=== PATIENT | female | born 1950 | race American Indian/Alaskan Native ===

== ENCOUNTER 2017-12-21 19:43 | Observation (INO) | payer BC ==
--- NOTE | 2017-12-21 20:11 | ED PDOC ---
Arrival/HPI - General Time Seen by Provider: 12/21/17 19:46 Historian: Patient - History of Present Illness Narrative History of Present Illness (Text): 12/21/17 20:07 A 67 year old female, whose past medical history includes hypertension, presents to the emergency department complaining of left-side chest discomfort for past couple days. Patient is unable to describe discomfort. Patient denies any fever, chills, cough, shortness of breath, or any other complaints. Also, patient mentions she is a past smoker. PMD: Dr. Ryan Montejo Time/Duration: Other (2-3 days) Symptom Onset: Sudden Symptom Course: Unchanged Activities at Onset: Light Context: Home Past Medical History - Provider Review Nursing Documentation Reviewed: Yes Family/Social History - Physician Review Nursing Documentation Reviewed: Yes Family/Social History: No Known Family HX, Hypertension Allergies/Home Meds Allergies/Adverse Reactions: Allergies No Known Allergies Allergy (Unverified 12/21/17 20:04) Home Medications: Home Meds Medication Instructions Recorded Confirmed Amlodipine Besylate/Benazepril 1 cap PO DAILY 12/21/17 12/21/17 [Amlodipine-Benazepril 10-40 mg] Review of Systems - Physician Review All systems were reviewed & negative as marked: Yes - Review of Systems Constitutional: absent: Fevers, Night Sweats Respiratory: absent: SOB, Cough Cardiovascular: Chest Pain (left-side chest discomfort, difficult for patient to describe) Physical Exam Vital Signs Temp Pulse Resp BP Pulse Ox 12/21/17 21:22 66 22 144/69 100 12/21/17 20:02 98.3 F 84 18 133/61 98 Temperature: Afebrile Blood Pressure: Normal Pulse: Regular Respiratory Rate: Normal Appearance: Positive for: Well-Appearing, Non-Toxic, Comfortable Pain Distress: None Mental Status: Positive for: Alert and Oriented X 3 - Systems Exam Pupils: Present: PERRL Extroacular Muscles: Present: EOMI Conjunctiva: Present: Normal Mouth: Present: Moist Mucous Membranes Neck: Present: Normal Range of Motion Respiratory/Chest: Present: Clear to Auscultation, Good Air Exchange. No: Respiratory Distress, Accessory Muscle Use Cardiovascular: Present: Regular Rate and Rhythm, Normal S1, S2. No: Murmurs Abdomen: No: Tenderness, Distention, Peritoneal Signs Back: Present: Normal Inspection Upper Extremity: Present: Normal Inspection. No: Cyanosis, Edema Lower Extremity: Present: Normal Inspection. No: Edema Neurological: Present: GCS=15, CN II-XII Intact, Speech Normal Skin: Present: Warm, Dry, Normal Color. No: Rashes Psychiatric: Present: Alert, Oriented x 3, Normal Insight, Normal Concentration Medical Decision Making ED Course and Treatment: 12/21/17 20:09 Impression: 67 year old female with left side chest discomfort. Physical exam is normal. Plan: -- EKG -- Chest X-ray -- Labs -- Aspirin -- Reassess and disposition Progress Notes: EKG: Ordered, reviewed, and independently interpreted the EKG. Rate : 71 BPM Rhythm : NSR Interpretation : LVH, non-specific ST- T- wave changes. Comparison : No previous EKG for comparison. 12/21/17 21:43 CXR Impression: As read by me, no acute process 12/21/17 22:[address] Esteban who is aware and agrees with the plan. Accepts patient into her service and request Dr. Nicholson for consult. - Lab Interpretations Lab Results: 12/21/17 20:22 12/21/17 20:22 Lab Results 12/21/17 20:22: WBC 7.4, RBC 3.68, Hgb 11.4 L, Hct 34.0 L, MCV 92.4, MCH 31.0, MCHC 33.5, RDW 12.9, Plt Count 286, MPV 10.6 12/21/17 20:22: Sodium 145, Potassium 4.4, Chloride 110 H, Carbon Dioxide 22, Anion Gap 17, BUN 26 H, Creatinine 1.0, Est GFR ( Amer) > 60, Est GFR ( Non-Af Amer) 55, Random Glucose 99, Calcium 9.4, Total Bilirubin 0.2, AST 34, ALT 20, Alkaline Phosphatase 81, Lactate Dehydrogenase 368, Total Creatine Kinase 84, Troponin I < 0.01, Total Protein 8.0, Albumin 4.5, Globulin 3.5, Albumin/Globulin Ratio 1.3 12/21/17 20:22: PT 10.7, INR 0.94, APTT 27.0 I have reviewed the lab results: Yes - RAD Interpretation Radiology Orders: 12/21/17 20:04 CHEST PORTABLE [RAD] Stat - EKG Interpretation Interpreted by ED Physician: Yes Type: 12 lead EKG - Medication Orders Current Medication Orders: Discontinued Medications Aspirin (Aspirin) 325 mg PO ONCE STA Stop: 12/21/17 20:07 Last Admin: 12/21/17 20:26 Dose: 325 mg - Scribe Statement The provider has reviewed the documentation as recorded by the Margarita Montgomery Provider Scribe Attestation: All medical record entries made by the Jimibramona were at my direction and personally dictated by me. I have reviewed the chart and agree that the record accurately reflects my personal performance of the history, physical exam, medical decision making, and the department course for this patient. I have also personally directed, reviewed, and agree with the discharge instructions and disposition. Disposition/Present on Arrival - Present on Arrival Any Indicators Present on Arrival: No - Disposition Have Diagnosis and Disposition been Completed?: Yes Diagnosis: Chest pain Disposition: HOSPITALIZED Disposition Time: 22:26 Patient Plan: Observation Patient Problems: Current Active Problems Problem Status Onset Chest pain Acute Condition: GOOD Discharge Instructions (ExitCare): Chest Pain (ED) Referrals: Mesha Montejo MD [Primary Care Provider] - Follow up with primary
[2017-12-21 20:12] VITALS: BMI 33.5
[2017-12-21 20:35] LABS: HEMOGLOBIN 11.4 g/dL (12.0-16.0); MEAN CELL VOLUME 92.4 fl (80.0-105.0); MEAN CORPUSCULAR HGB CONC 33.5 g/dl (31.0-37.0); MEAN PLATELET VOLUME 10.6 fl (7.0-11.0); RBC 3.68 10^6/uL (3.5-6.1); RED CELL DISTRIBUTION WIDTH 12.9 % (11.5-14.5); WHITE BLOOD COUNT 7.4 10^3/ul (4.5-11.0)
[2017-12-21 20:44] LABS: ALB/GLOB RATIO 1.3 (1.1-1.8); ALBUMIN 4.5 g/dL (3.0-4.8); ALT/SGPT 20 U/L (7-56); AST/SGOT 34 U/L (14-36); BLOOD UREA NITROGEN 26 mg/dL (7-21); CALCIUM 9.4 mg/dL (8.4-10.5); GFR AFRICAN-AMERICAN > 60; GFR NON-AFRICAN AMERICAN 55
[2017-12-21 20:49] LABS: INR 0.94 (0.93-1.08); PROTHROMBIN TIME 10.7 SECONDS (9.4-12.5)
[2017-12-21 20:56] LABS: TROPONIN I < 0.01 ng/mL
[2017-12-22 01:11] VITALS: RESP 20
[2017-12-22 06:00] VITALS: O2SAT 98
[2017-12-22 07:02] LABS: TROPONIN I < 0.01 ng/mL
--- NOTE | 2017-12-22 09:14 | RAD ---
HISTORY: chest pain COMPARISON: No prior. FINDINGS: LUNGS: No active pulmonary disease. PLEURA: No significant pleural effusion identified, no pneumothorax apparent. CARDIOVASCULAR: Normal. OSSEOUS STRUCTURES: No significant abnormalities. VISUALIZED UPPER ABDOMEN: Normal. OTHER FINDINGS: None. IMPRESSION: No active disease.
--- NOTE | 2017-12-22 10:58 | CON ---
DATE: 12/22/2017 REASON FOR CONSULTATION: Chest pain. HISTORY OF PRESENT ILLNESS: This is a 67-year-old woman with hypertension and hyperlipidemia who smokes few cigarettes per day, who came in because of left-sided vague discomfort over the course of several days with 3 or 4 episodes. It is now associated with diaphoresis or shortness of breath. There is no typical exertional chest pain, dyspnea on exertion, orthopnea, PND, syncope, presyncope, lightheadedness, dizziness, vertigo, palpitations, edema, or claudication. There is no fever, chills, cough, sputum production, hemoptysis, abdominal pain, nausea, vomiting, diarrhea, constipation, or melena. PAST MEDICAL HISTORY: Notable for hypertension, hyperlipidemia and cigarette smoking. She has reduced to a few cigarettes per day and has stopped about two days ago. She plans to stop it permanently at this time. She has seen a receipt and report clerk in [place] (Dr. Paula Florence) and had a treadmill stress test about a year ago, apparently this was unremarkable. There is no history of diabetes, stroke, TIA or gout. MEDICATIONS AT THE TIME OF ADMISSION: Include Lotrel and Crestor. ALLERGIES: THERE ARE NO KNOWN MEDICATION ALLERGIES. SOCIAL HISTORY: She lives at home. She is ambulatory. She did not drink alcohol significantly. FAMILY HISTORY: Noncontributory. REVIEW OF SYSTEMS: A 10-point review of systems is otherwise unremarkable except as noted above. PHYSICAL EXAMINATION: GENERAL: She is a well-developed woman lying in bed on telemetry, in no acute distress. VITAL SIGNS: Notable for sinus rhythm 66 to 80 beats per minute. She is afebrile. Blood pressure 144/69, respirations 20 to 22, O2 sat 94 to 98%. HEENT: Reveals no neck vein distention, thyromegaly or carotid bruits. Mucous membranes moist. Conjunctivae pink. NECK: Supple. LUNGS: Lung gaona clear. HEART: Reveals normal first and second heart sounds. ABDOMEN: Soft. Bowel sounds present. No mass, organomegaly, tenderness, rebound, or guarding. No CVA tenderness. No palpable abdominal aortic aneurysm. EXTREMITIES: Reveals no cyanosis, clubbing or edema. NEUROLOGICAL: She is awake, alert, and oriented. SKIN: Warm and dry. No rash or cellulitis. PSYCHIATRIC: Normal as to mood and affect. LABORATORY DATA AND IMAGING: Chest x-ray report is not available. By my reading, the lungs are clear, there is no infiltrate or effusion. There is no CHF. EKG demonstrates regular sinus rhythm, voltage criteria for LVH. No acute changes. No prior EKG for comparison. White count normal. Platelet count normal. Hemoglobin 11.4, hematocrit 34. PT, PTT, INR unremarkable. Electrolytes, BUN and creatinine are basically normal. LFTs unremarkable. CK negative x2. Troponin negative x2. IMPRESSION: Janelle Ruelas is a 67-year-old hypertensive woman with a history of hyperlipidemia who presents with atypical chest pain x3 or 4 episodes over the course of a couple of days. There is no evidence of acute myocardial infarction or arrhythmia on telemetry. She has a receipt and report clerk in [place]. She had a treadmill stress test about a year ago which was unremarkable. She is trying to stop smoking. I will repeat her EKG this morning. If it remains unremarkable, she can be discharged with plans for outpatient followup with Dr. Florence. I have suggested a nuclear stress test. I strongly advised her to quit smoking permanently. If chest pain recurs, she will come back immediately or call her receipt and report clerk. She will continue her current medications including Lotrel and Crestor. I would add aspirin to her medical regimen. I will check an echocardiogram. I will discuss the case further with you. Cristofer Nicholson MD
[2017-12-22 12:01] VITALS: BP 139/72; TEMP 98.1
[2017-12-22 16:42] VITALS: PULSE 79
--- NOTE | 2017-12-22 16:52 | CARD ---
APPROVED REPORT EKG Measurement Heart [id number] <Conclusion> Normal sinus rhythm Voltage criteria for left ventricular hypertrophy Abnormal ECG
--- NOTE | 2017-12-22 16:54 | CARD ---
APPROVED REPORT EXAM: Two-dimensional and M-mode echocardiogram with Doppler and color Doppler. INDICATION Chest Pain 2D DIMENSIONS Left Atrium (2D)4.0 (1.6-4.0cm)IVSd1.1 (0.7-1.1cm) LVDd4.1 (3.9-5.9cm)PWd1.1 (0.7-1.1cm) LVDs2.8 (2.5-4.0cm)FS (%) 32.4 % LVEF (%)61.2 (>50%) M-Mode DIMENSIONS Aortic Root2.80 (2.2-3.7cm)Aortic Cusp Exc.1.50 (1.5-2.0cm) Aortic Valve AoV Peak Swozyfoo648.0cm/Reji Peak GR.13mmHg Mitral Valve MV E Eipurpjo305.0cm/sMV A Vuouxarl25.1cm/sE/A ratio1.1 TDI E/Lateral E'0.0E/Medial E'0.0 Tricuspid Valve TR Peak [id number]/sRAP [id number] Peak Gr.20mmHg [id number] LEFT VENTRICLE The left ventricle is normal size. There is borderline concentric left ventricular hypertrophy. The left ventricular function is normal. The left ventricular ejection fraction is within the normal range. There is normal LV segmental wall motion. RIGHT VENTRICLE The right ventricle is normal size. The right ventricular systolic function is normal. ATRIA The left atrium is borderline dilated. The right atrium size is normal. The interatrial septum is intact with no evidence for an atrial septal defect. AORTIC VALVE The aortic valve is normal in structure. No aortic regurgitation is present. There is no aortic valvular stenosis. MITRAL VALVE The mitral valve is normal in structure. There is no mitral valve regurgitation noted. There is no mitral valve stenosis. TRICUSPID VALVE The tricuspid valve is normal in structure. There is mild tricuspid regurgitation. PULMONIC VALVE The pulmonary valve is normal in structure. GREAT VESSELS The aortic root is normal in size. The IVC is normal in size and collapses >50% with inspiration. PERICARDIAL EFFUSION There is no pleural effusion. There is no pericardial effusion. <Conclusion> Borderline LA enlargement. Normal LV size and systolic function. Borderline concentric LVH. Mild TR.
--- NOTE | 2017-12-23 02:46 | HP ---
DATE OF EXAM: 12/22/2017 HISTORY AND PHYSICAL AND DISCHARGE SUMMARY FINAL DIAGNOSES: Chronic hypertension, hyperlipidemia, obesity, atypical chest pain. CONSULTANTS: Dr. Cristofer Nicholson from Cardiology. DISPOSITION: Home. Follow up with patient's Hot Water Heater Installer that would be Dr. Paula Florence within the next 48 hours. DISCHARGE DIET: 2 g sodium, heart-healthy. DISCHARGE MEDICATIONS: Crestor 10 mg p.o. at bedtime and Lotrel 10/40 mg p.o. daily. A 2 g sodium, heart-healthy diet reviewed with patient. Patient will need outpatient stress test with Dr. Paula Florence within the next week. Patient was strongly counseled regarding discontinuation of smoking. SUMMARY: This 67-year-old female was admitted to [facility] after presenting to the ER complaining of left-sided chest discomfort on and off for the past several days, not associated with any shortness of breath or diaphoresis and not associated with any exertion. Past history is significant for chronic hypertension, hyperlipidemia, cigarette smoking, obesity and patient follows with Dr. Paula Florence, her Hot Water Heater Installer and states she had a treadmill stress test approximately 1 year ago, which was reportedly unremarkable. Patient was seen earlier today by Dr. Cristofer Nicholson, who concurred with the patient's current medical treatment plan. He ordered a 2-D echocardiogram, which I reviewed with the echocardiogram tech. It was essentially unremarkable. The patient was then cleared to be discharged home to the care of her Hot Water Heater Installer. ALLERGIES: THE PATIENT HAS NO KNOWN ALLERGIES TO HER MEDICATIONS. SOCIAL HISTORY: She is a nondrinker and non IV drug misuser. FAMILY HISTORY: Noncontributory. PHYSICAL EXAMINATION: GENERAL: When I evaluated the patient, she was in a normal sinus rhythm on the security monitor. VITAL SIGNS: Temperature of 98.1, respirations 20, pulse 87, blood pressure 139/72 and pulse ox 98% room air. HEENT: Head: Normocephalic, atraumatic. Eyes: No icterus. Ears: Clear. Throat: Noninjected. NECK: Supple. HEART: Regular S1, S2. LUNGS: Clear. ABDOMEN: Soft. EXTREMITIES: No edema. SKIN: Without rash. NEUROLOGICAL: Intact. PSYCHOLOGICAL: Alert. VASCULAR: Legs warm to touch. LABORATORY DATA: White count 7400, hemoglobin 11.4, hematocrit 34, platelets 286,000. PT/INR 0.94, PTT 27. Sodium 145, K 4.4, chloride 110, bicarb 22, BUN 26, creatinine 1, random blood sugar 99. Bilirubin 0.2, AST 34, ALT 20 and alk phos 81. CPK #1, 84 with troponin less than 0.01. CPK #2, 79 with troponin less than 0.01. Chest x-ray was reviewed, it showed no active pulmonary disease. There was no infiltrate, no effusion, no congestive heart failure, no pneumonia. Patient's EKG was reviewed, it showed normal sinus rhythm with nonspecific ST-T wave changes and her 2D echocardiogram was discussed with the echocardiographic tech, it showed normal left ventricular size and systolic function with mild tricuspid regurgitation. IMPRESSION: A 67-year-old female admitted with atypical chest pain, chronic hypertension, hyperlipidemia, cigarette smoking and obesity. The patient was anxious for discharge to home. She was advised to follow up with Dr. Paula Florence, her Hot Water Heater Installer in next 48 hours and was advised by both myself and Dr. Nicholson to proceed with a repeat cardiac stress test. She is aware of her mild normochromic normocytic anemia that needs to be followed up with her private medical doctor as well and she was advised to discuss the timing of a possible endoscopy, colonoscopy if not done in the recent past. She was also advised to be compliant with diet, weight reduction, cessation of smoking and compliance with Crestor and Lotrel medications and also to represent to the [facility] for any change in signs and symptoms. Patient was clearing her understanding of all of the above and hopefully, she will be compliant with these recommendations. This discussion was also reviewed with nurse, Kate Abreu, registered nurse. The patient was cleared for discharge to home by Dr. Nicholson from cardiology as well. Nicole Esteban MD [facility]
== END 2017-12-22 17:45 | disposition home or self-care (01) ==
LOC: ED 19:43 → ERH 22:26 → 2RNO 12-22 00:30
PROVIDERS: ADMIT Internal Medicine; ATTEND Internal Medicine
DX: R07.89 Other chest pain (principal); I10 Essential (primary) hypertension; D64.9 Anemia, unspecified; E78.5 Hyperlipidemia, unspecified; F17.210 Nicotine dependence, cigarettes, uncomplicated; E66.9 Obesity, unspecified; Z68.33 Body mass index [BMI] 33.0-33.9, adult
CPT/HCPCS: 36415; 71045; 80053; 82550; 83615; 84484; 85027; 85610; 85730; 93005; 93306; 99285; G0378